=== PATIENT | female | born 1995 | race Caucasian/White ===

== ENCOUNTER 2016-06-01 17:04 | Emergency (ER) | payer OTHER ==
[~2016-06-01 17:04] MED LIST: IBUPROFEN100 MG PO; NO MEDICATIONS; VIBRAMYCIN100 M1 PO
== END 2016-06-01 17:55 | disposition home or self-care (01) ==
LOC: CFTX 17:04
DX: J02.0 Streptococcal pharyngitis (principal); F17.210 Nicotine dependence, cigarettes, uncomplicated
CPT/HCPCS: 87880; 96372; 99283; J0561